=== PATIENT | female | born 2005 | race Hispanic/Latino ===

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

== ENCOUNTER 2024-06-10 11:30 | Inpatient (IN) | payer BC, OTHER ==
--- OUTSIDE RECORDS SUMMARY | 2024-06-10 11:33 | XMS REPORT | Continuity of Care Document ---
Author Name Unknown Address [address] [place] [address]. [address] [place] [id number] [place] [address] [employer] Address [address] [place] [address]. [address] [place] [address] Care Team Providers Care Senior Art Director Name Role Phone [email or web address] Attending Clinician Unavaila ble [email or web address] Admitting Clinician Unavaila ble Encounters Start Date/Time End Date/Time Encounter Type Admission Type Attending Clinicians Care Facility Care Department Encounter ID Source 2023-08-15 00:00:00 2023-08-15 00:00:00 Outpatient [email or web address] PRIV PRIV [id number] [facility] 2023-08-14 00:00:00 2023-08-14 00:00:00 Outpatient [email or web address] PRIV PRIV [id number] [facility]
[2024-06-10 12:46] LABS: Specific Gravity 1.012 (1.005-1.030)
[2024-06-10 12:47] LABS: Specific Gravity 1.012 (1.005-1.030); Sqamous Epithelial <5 /HPF (None Seen); Urine Bacteria None Seen /HPF (<20); Urine Bilirubin NEGATIVE (Negative); Urine Blood 1+ (Negative); Urine Clarity Turbid (Clear); Urine Color Light-Yellow (Yellow); Urine Culture Reflex Order NOT NEEDED; Urine Glucose NEGATIVE (Negative); Urine Ketones NEGATIVE (Negative); Urine Microscopic Reflex YN ORDER UMIC; Urine Mucus Slight /HPF (None Seen); Urine Nitrite NEGATIVE (Negative); Urine Protein 4+ (Over) (Negative); Urine RBC <5 /HPF (None Seen); Urine Urobilinogen Normal (Normal); Urine WBC <5 /HPF (<5)
[2024-06-10] MEDS ORDERED: ONDANSETRON 4 MG/2 ML VIAL ONE (13:04)
[2024-06-10] MEDS ORDERED: NA CHLORIDE 0.9% 1,000 ML ONE ×2 (13:05→14:09)
[2024-06-10] MEDS ORDERED: MORPHINE 4 MG/ML SYR ONE (13:05)
[2024-06-10 13:13] LABS: Absolute Lymphocytes (CBC) 0.6 K/uL (0.7-4.9); Absolute Neutrophil 18.1 K/uL (1.8-8.0); Basophils % 0.1 % (0-1.3); Eosinophils % 0.1 % (0-4.4); Hematocrit 39.4 % (36.0-45.0); Hemoglobin 12.9 g/dL (12.0-15.0); Lymphocytes % 3.1 % (15.3-44.8); MCH 28.1 pg (27.0-35.0); MCHC 32.7 g/dL (32.0-36.0); MCV 85.9 fL (80-100); MPV 9.3 fL (7.6-11.3); Monocytes % 5.2 % (3.3-12.3); Neutrophils % 91.5 % (41.7-73.7); Platelets 314 thou/uL (152-406); RBC Red Blood Cell Count 4.59 M/uL (3.86-4.86); Red Cell Distribution Width 14.1 % (12.1-15.2)
[2024-06-10 13:31] LABS: Albumin 2.5 g/dL (3.4-5.0); Albumin/Globulin Ratio 0.7 (1.1-1.8); Anion Gap 8.5 mEq/L (5.0-15.0); Globulin 3.7 g/dL (2.3-3.5); Protein, Total 6.2 g/dL (6.4-8.2)
[2024-06-10 13:33] LABS: Potassium 3.5 mEq/L (3.5-5.1)
--- NOTE | 2024-06-10 13:46 | RAD REPORT ---
EXAM DESCRIPTION: CT - Abdomen Pelvis W Contrast - 06/10/2024 1:25 pm CLINICAL HISTORY: Abdominal pain COMPARISON: none. TECHNIQUE: Computed axial tomography of the abdomen pelvis was obtained. 100 cc Isovue-300 was admin istered intravenously. Oral contrast was not requested which limits evaluation of bowel and appendix All CT scans are performed using dose optimization technique as appropriate and may include automated exposure control or mA/KV adjustment according to patient size. FINDINGS: The liver, spleen, pancreas, adrenal and kidneys appear unremarkable. There is no evidence of diverticulitis. The appendix is retrocecal and extends superiorly from the cecum. It contains a 19 mm stone. The appe ndix is enlarged with stranding in adjacent fat. No free air. No abscess IMPRESSION: Appendicitis
[2024-06-10 13:59] LABS: Blood Morphology Comment NOT SEEN (NOT SEEN); Platelet Estimate ADEQ; White Blood Cell Scan OK (OK)
[2024-06-10] MEDS ORDERED: PIPERACIL/TAZO 3.375 GM VIAL IV ONE (14:10)
--- NOTE | 2024-06-10 14:15 | EDPHYS ---
Physician Documentation [facility] Name: Clotilde Mathew Age: 18 yrs Sex: Female : 2005 Arrival Date: 06/10/2024 Time: 11:30 Bed 18 Private MD: ED Physician Susan Larios HPI: 06/10 14:09 This 18 yrs old Female presents to ER via Ambulatory with complaints of sp3 Abdominal Pain, Vomiting. 14:09 18-year-old female with no past medical history presents with right lower quadrant sp3 abdominal pain for 24 hours coupled with nausea. Possible bad food intake with "sushi". She denies any other symptoms including fever, travel history, chest pain, shortness of breath, diarrhea, syncope, rash, or any other signs or symptoms on ROS at this time.. 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 - Infectious Disease History:: Denies. - Social history:: Smoking status: Patient reports the use of cigarette tobacco products. ROS: 14:11 Constitutional: Negative for fever, chills, and weight loss, Eyes: Negative for injury, sp3 pain, redness, and discharge, ENT: Negative for injury, pain, and discharge, Neck: Negative for injury, pain, and swelling, Cardiovascular: Negative for chest pain, palpitations, and edema, Respiratory: Negative for shortness of breath, cough, wheezing, and pleuritic chest pain, Back: Negative for injury and pain, MS/Extremity: Negative for injury and deformity, Skin: Negative for injury, rash, and discoloration, Neuro: Negative for headache, weakness, numbness, tingling, and seizure, Psych: Negative for depression, anxiety, suicide ideation, homicidal ideation, and hallucinations, Allergy/Immunology: Negative for hives, rash, and allergies, Endocrine: Negative for neck swelling, polydipsia, polyuria, polyphagia, and marked weight changes, Hematologic/Lymphatic: Negative for swollen nodes, abnormal bleeding, and unusual bruising, 14:11 All other systems are negative, Exam: 14:11 Constitutional: This is a well developed, well nourished patient who is awake, alert, sp3 and in no acute distress. Head/Face: Normocephalic, atraumatic. Eyes: Pupils equal round and reactive to light, extra-ocular motions intact. Lids and lashes normal. Conjunctiva and sclera are non-icteric and not injected. Cornea within normal limits. Periorbital areas with no swelling, redness, or edema. ENT: Nares patent. No nasal discharge, no septal abnormalities noted. External auditory canals are clear. Oropharynx with no redness, swelling, or masses, exudates, or evidence of obstruction, uvula midline. Mucous membranes moist. Neck: Trachea midline, no thyromegaly or masses palpated, and no cervical lymphadenopathy. Supple, full range of motion without nuchal rigidity, or vertebral point tenderness. No Meningismus. Chest/axilla: Normal chest wall appearance and motion. Nontender with no deformity. No lesions are appreciated. Cardiovascular: Regular rate and rhythm with a normal S1 and S2. No gallops, murmurs, or rubs. Normal PMI, no JVD. No pulse deficits. Respiratory: Lungs have equal breath sounds bilaterally, clear to auscultation and percussion. No rales, rhonchi or wheezes noted. No increased work of breathing, no retractions or nasal flaring. Back: No spinal tenderness. No costovertebral tenderness. Full range of motion. Skin: Warm, dry with normal turgor. Normal color with no rashes, no lesions, and no evidence of cellulitis. MS/ Extremity: Pulses equal, no cyanosis. Neurovascular intact. Full, normal range of motion. Neuro: Awake and alert, GCS 15, oriented to person, place, time, and situation. Cranial nerves II-XII grossly intact. Motor strength 5/5 in all extremities. Sensory grossly intact. Cerebellar exam normal. Normal gait. Psych: Awake, alert, with orientation to person, place and time. Behavior, mood, and affect are within normal limits. 14:11 Abdomen/GI: Right lower quadrant abdominal pain to palpation with localized peritonitis, Vital Signs: 11:56 BP 167 / 90; Pulse 112; Resp 18; Temp 98.4; Pulse Ox 100% ; Weight 86.18 kg; Height 5 iw ft. 0 in. ; Pain 9/10; 14:39 BP 155 / 75; Pulse 107; Resp 15; Pulse Ox 97% ; bp 11:56 Body Mass Index 37.11 (86.18 kg, 152.4 cm) iw 11:56 Pain Scale: Adult iw MDM: 12:00 Patient medically screened. sp3 14:12 Data reviewed: vital signs, nurses notes, lab test result(s), radiologic studies. ED sp3 course: 18-year-old female with right lower quadrant abdominal pain. Differential diagnosis includes appendicitis, foodborne illness, AQUATICS LIFEGUARD pathology, UTI/pyelonephritis pathology, other colitis, among others. Workup will include CT scan of the abdomen pelvis, laboratory values, UA, test, IV fluid bolus given heart rate, lactate, morphine and Zofran IV. CT scan demonstrates positive appendicitis without abscess or rupture coupled with localized fat stranding. WBC 19,000. Patient meets sepsis criteria and second normal saline bolus also given. Zosyn IV given and cultures are pending. I discussed the case with Dr. Rodriguez and hospitalist for admission and surgical intervention. Patient remains n.p.o.. 06/10 12:00 Order name: CBC with Diff; Complete Time: 14:05 sp3 06/10 12:00 Order name: CMP; Complete Time: 13:50 sp3 06/10 12:00 Order name: Lipase; Complete Time: 13:50 sp3 06/10 12:00 Order name: Test, Urine; Complete Time: 12:54 sp3 06/10 12:00 Order name: Urinalysis w/ reflexes; Complete Time: 12:54 sp3 06/10 12:00 Order name: Lactate w/ 2H reflex if indic.; Complete Time: 13:50 sp3 06/10 13:16 Order name: CBC Smear Scan; Complete Time: 14:05 EDMS 06/10 12:00 Order name: CT Abd/Pelvis - IV Contrast Only; Complete Time: 13:50 sp3 06/10 12:00 Order name: IV Saline Lock; Complete Time: 13:08 sp3 06/10 12:00 Order name: Labs collected and sent; Complete Time: 13:08 sp3 Administered Medications: 13:10 Drug: NS 0.9% IV 1000 ml IV at 1 bolus Per protocol; 1000 mL bolus Route: IV; Rate: 1 jl7 bolus; Site: right antecubital; 14:40 Follow up: IV Status: Completed infusion; IV Intake: 1000ml bp 13:10 Drug: Ondansetron IVP 4 mg IVP once; over 2 minutes Route: IVP; Site: right antecubital;jl7 14:04 Follow up: Response: No adverse reaction bp 13:12 Drug: morphine IVP or IV 4 mg IVP once over 4 mins Route: IVP; Infused Over: 4 mins; jl7 Site: right antecubital; 14:15 Follow up: Response: No adverse reaction bp 14:15 Drug: NS 0.9% IV 1000 ml IV at 1 bolus Per protocol; 1000 mL bolus Route: IV; Rate: 1 bp bolus; Site: right antecubital; 14:40 Follow up: IV Status: Completed infusion; IV Intake: 1000ml bp 14:15 Drug: Piperacillin-Tazobactam IVPB 3.375 grams IVPB once over 60 mins; (mix in NS 100 bp mL) Route: IVPB; Infused Over: 60 mins; Site: right antecubital; 14:40 Follow up: IV Status: Completed infusion; IV Intake: 100ml bp Disposition Summary: 06/10/24 14:14 Hospitalization Ordered Notes: Hospitalization Status: Inpatient Admission sp3 Provider: Elia Graf spLynne Location: Telemetry/[facility] (Inpatient) sp3 Condition: Stable sp3 Problem: new sp3 Symptoms: have worsened sp3 Bed/Room Type: Standard sp3 Room Assignment: sp3 Diagnosis - Acute appendicitis with localized peritonitis sp3 Forms: - Medication Reconciliation Form sp3 - SBAR form sp3 - Leadership Thank You Letter sp3 Signatures: Dispatcher [employer] Kristine Jeffers RN RN iw Leal, Jahala, RN RN jl7 Peltier, Brian, RN RN bp Patel, Setul, MD MD sp3
--- NOTE | 2024-06-10 14:15 | ER ---
Nurse's Notes [facility] Name: Clotilde Mathew Age: 18 yrs Sex: Female : 2005 Arrival Date: 06/10/2024 Time: 11:30 Bed 18 Private MD: Diagnosis: Acute appendicitis with localized peritonitis Presentation: 06/10 11:56 Chief complaint: Patient states: started vomiting last night and had stomach ache , is iw in excruciating pain , pt reports pain is 9/10 localized to right abd. Coronavirus screen: At this time, the client does not indicate any symptoms associated with coronavirus-19. Ebola Screen: No symptoms or risks identified at this time. Initial Sepsis Screen: Does the patient meet any 2 criteria? No. Patient's initial sepsis screen is negative. Does the patient have a suspected source of infection? No. Patient's initial sepsis screen is negative. Risk Assessment: Do you want to hurt yourself or someone else? Patient reports no desire to harm self or others. Onset of symptoms was June 09, 2024. 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 - Infectious Disease History:: Denies. - Social history:: Smoking status: Patient reports the use of cigarette tobacco products. Screenin:17 [facility] ED Fall Risk Assessment (Adult) History of falling in the last 3 months, jl7 including since admission No falls in past 3 months (0 pts) Confusion or Disorientation No (0 pts) Intoxicated or Sedated No (0 pts) Impaired Gait No (0 pts) Mobility Assist Device Used No (0 pt) Altered Elimination No (0 pt) Score/Fall Risk Level 0 - 2 = Low Risk Oriented to surroundings, Maintained a safe environment. Abuse screen: Denies threats or abuse. Denies injuries from another. Nutritional screening: No deficits noted. Tuberculosis screening: No symptoms or risk factors identified. Assessment: 13:17 General: Appears in no apparent distress. uncomfortable, Behavior is calm, cooperative, jl7 appropriate for age. Pain: Complains of pain in right lower quadrant Pain currently is 10 out of 10 on a pain scale. Neuro: Level of Consciousness is awake, alert, obeys commands, Oriented to person, place, time, situation. Cardiovascular: Patient's skin is warm and dry. Respiratory: Airway is patent Respiratory effort is even, unlabored, Respiratory pattern is regular, symmetrical. GI: Abdomen is non-distended, Reports lower abdominal pain. Derm: Skin is pink, warm \T\ dry. 13:23 Reassessment: Pt medicated and placed back in lobby, notified of wait time. jl7 14:00 Reassessment: Dr. Larios at bedside discussing results and POC. jl7 14:06 Reassessment: Patient and/or family updated on plan of care and expected duration. Pain ap3 level reassessed. General: Appears in no apparent distress. Behavior is calm, cooperative, appropriate for age. Pain: Complains of pain in right lower quadrant. Neuro: Level of Consciousness is awake, alert, obeys commands, Oriented to person, place, time, situation, Appropriate for age. Cardiovascular: Patient's skin is warm and dry. Respiratory: Airway is patent Respiratory effort is even, unlabored, Respiratory pattern is regular, symmetrical. 14:15 Reassessment: +APPY PER MD, SURGERY C/S IN PROCESS. bp 14:38 Reassessment: OR AT B/S FOR ADMIT. bp 14:39 GI: Bowel sounds present X 4 quads. Abd is soft X 4 quads Abdomen is tender to bp palpation in right lower quadrant. Vital Signs: 11:56 BP 167 / 90; Pulse 112; Resp 18; Temp 98.4; Pulse Ox 100% ; Weight 86.18 kg; Height 5 iw ft. 0 in. ; Pain 9/10; 14:39 BP 155 / 75; Pulse 107; Resp 15; Pulse Ox 97% ; bp 11:56 Body Mass Index 37.11 (86.18 kg, 152.4 cm) iw 11:56 Pain Scale: Adult iw ED Course: 11:35 Patient arrived in ED. im 11:40 Susan Larios MD is Attending Physician. sp3 11:57 Triage completed. iw 12:49 Missed attempt(s): 22 gauge in right antecubital area. Bleeding controlled, band aid zm applied, catheter tip intact. 13:00 Missed attempt(s): 22 gauge in right antecubital area. Bleeding controlled, band aid jl7 applied, catheter tip intact. 13:08 Initial lab(s) drawn, by me, sent to lab. Inserted saline lock: 20 gauge in right jl7 antecubital area, using aseptic technique. Blood collected. Flushed with 10 mL NS Accessed peripheral vein via ultrasound, utilizing dynamic ultrasound technique Inserted by Linda Ibarra RN. 13:17 Patient has correct armband on for positive identification. Provided Education on: jl7 tests. 13:26 CT Abd/Pelvis - IV Contrast Only In Process Unspecified. EDMS 14:04 Nicholas Garvey, ABDIRIZAK is Primary Nurse. bp 14:06 Arm band placed on right wrist. ap3 14:14 Elia Graf MD is Hospitalizing Provider. sp3 14:38 No provider procedures requiring assistance completed. Patient admitted, IV remains in bp place. Administered Medications: 13:10 Drug: NS 0.9% IV 1000 ml IV at 1 bolus Per protocol; 1000 mL bolus Route: IV; Rate: 1 jl7 bolus; Site: right antecubital; 14:40 Follow up: IV Status: Completed infusion; IV Intake: 1000ml bp 13:10 Drug: Ondansetron IVP 4 mg IVP once; over 2 minutes Route: IVP; Site: right antecubital;jl7 14:04 Follow up: Response: No adverse reaction bp 13:12 Drug: morphine IVP or IV 4 mg IVP once over 4 mins Route: IVP; Infused Over: 4 mins; jl7 Site: right antecubital; 14:15 Follow up: Response: No adverse reaction bp 14:15 Drug: NS 0.9% IV 1000 ml IV at 1 bolus Per protocol; 1000 mL bolus Route: IV; Rate: 1 bp bolus; Site: right antecubital; 14:40 Follow up: IV Status: Completed infusion; IV Intake: 1000ml bp 14:15 Drug: Piperacillin-Tazobactam IVPB 3.375 grams IVPB once over 60 mins; (mix in NS 100 bp mL) Route: IVPB; Infused Over: 60 mins; Site: right antecubital; 14:40 Follow up: IV Status: Completed infusion; IV Intake: 100ml bp Medication: 13:17 VIS not applicable for this client. jl7 Intake: 14:40 IV: 1000ml; Total: 1000ml. bp 14:40 IV: 100ml; Total: 1100ml. bp 14:40 IV: 1000ml; Total: 2100ml. bp Outcome: 14:14 Decision to Hospitalize by Provider. sp3 14:38 Admitted to OR accompanied by nurse, via wheelchair, room 212, with chart, Report bp called to ETELVINA REVELES 14:38 Condition: stable 14:38 Instructed on the need for admit, 14:42 Patient left the ED. bp Signatures: Dispatcher [employer] EDMS Kristine Bermudez, RN RN iw Sruthi Hull RN RN jl7 Nicholas Garvey RN RN Brittney Walls RN RN [email or web address] Susan Larios MD MD sp3 Radha Ibarra Itzel im
--- NOTE | 2024-06-10 14:38 | P.HP ---
Certification for Inpatient Patient admitted to: Inpatient With expected LOS: >2 Midnights Patient will require the following post-hospital care: None Practitioner: I am a practitioner with admitting privileges, knowledge of patient current condition, hospital course, and medical plan of care. Services: Services provided to patient in accordance with Admission requirements found in Title 42 Section 412.3 of the Code of Federal Regulations <Chanda Lyons - Last Filed: 06/10/24 16:57> Patient History Date of Service: 06/10/24 Reason for admission: abdominal pain, vomiting History of Present Illness: Ms. Mathew 18-year-old female with a past medical history of insomnia who began vomiting last p.m. with complaint of right lower quadrant abdominal pain. She presented to the emergency department with severe pain in the right lower quadrant continued nausea and vomiting. She was noted to have a very high white count at 19.7 with neutrophils of 91.5%, CMP within normal limits, lactate 2.2, urine test negative. CT abdomen pelvis was performed and read as acute appendicitis. Dr. Rodriguez was consulted and the patient was taken to the operating room after receiving 2 L of normal saline, Zosyn 3.375gm, morphine 4 mg and Zofran 4 mg IV. She will be admitted to the hospital for further treatment. Home medications list reviewed: Yes - Past Medical/Surgical History Has patient received pneumonia vaccine in the past: No Diabetic: No -: Tonsillectomy -: Adenoidectomy Psychosocial/ Personal History: Vapes but does not drink alcohol. Mild hearing loss - Social History Smoking Status: Current every day smoker Alcohol use: No CD- Drugs: No Caffeine use: Yes Place of Residence: Home <Chanda Lyons - Last Filed: 06/10/24 16:57> Date of Service: 06/10/24 <Elia Graf - Last Filed: 06/10/24 18:15> Allergies No Known Drug Allergies Allergy (Unverified 11/12/14 22:09) Unknown Home Medications: NK [No Home Meds] 02/21/13 Review of Systems 10-point ROS is otherwise unremarkable Gastrointestinal: Nausea, Vomiting, Abdominal Pain, As per HPI <Chanda Lyons - Last Filed: 06/10/24 16:57> Physical Examination - Physical Exam General: Alert, In no apparent distress, Oriented x3 HEENT: Atraumatic, Normocephalic Neck: Supple Respiratory: Normal air movement Cardiovascular: Normal pulses, Regular rate/rhythm Capillary refill: <2 Seconds Gastrointestinal: Normal bowel sounds, Distended, Tenderness (Right lower quadrant) Musculoskeletal: No clubbing Integumentary: No rashes Neurological: Normal speech, Normal tone, Normal affect Lymphatics: No axilla or inguinal lymphadenopathy External genitalia: Deferred Rectal: Deferred - Studies Laboratory Data (last 24 hrs) 06/10/24 06/10/24 13:02 13:02 WBC 19.70 H Hgb 12.9 Hct 39.4 Plt Count 314 Sodium 136 Potassium 3.5 BUN 8 Creatinine 0.69 Glucose 130 H Total Bilirubin 1.0 AST 16 ALT 18 Alkaline Phosphatase 80 Lipase 20 <Chanda Lyons - Last Filed: 06/10/24 16:57> - Studies Laboratory Data (last 24 hrs) 06/10/24 06/10/24 13:02 13:02 WBC 19.70 H Hgb 12.9 Hct 39.4 Plt Count 314 Sodium 136 Potassium 3.5 BUN 8 Creatinine 0.69 Glucose 130 H Total Bilirubin 1.0 AST 16 ALT 18 Alkaline Phosphatase 80 Lipase 20 <HomarChidigeorge C - Last Filed: 06/10/24 18:15> Assessment and Plan - Plan Acute appendicitis Sepsis Given 2L NS bolus in ED To OR Consult Dr. Rodriguez (done from ED) Zosyn 3.375gm IVPB Q8h pain control Monitor labs, trend CBC, Lactate TEDS - Advance Directives Does patient have a Living Will: No Does patient have a Durable POA for Healthcare: No Time Spent Managing Pts Care (In Minutes): 50 <Chanda Lyons - Last Filed: 06/10/24 16:57> - Plan Pt seen and examined. I agree with the note by the STAPLE FIBER WASHER. Pt is a 18yo female with past medical history of insomnia who presents with RLQ abd pain . The abdominal pain is associated with nausea and vomiting. The abdominal painis constant, sharp and non-radiating. Lab studies show wbc 19.7, Hgb12.9, K 3.5, Cr 0.69, lactate 2.2, urine test negative. CT abdomen pelvis showed acute appendicitis. Dr. Michael took her to the OR for surgery. A/P: Severe sepsis 2/2 Acute appendicitis: Will continue zosyn and f/u blood cx. Gen surgery took her to the OR today. Continue IVF and prn pain med. Lactic acidosis: Lactate is 2.2. Will continue IVF and trend lactate. Insomnia: continue melatonin Obesity: Pt was advised to lose weight. DVT ppx: SCD. <Elia Garf - Last Filed: 06/10/24 18:15>
[2024-06-10] MEDS: Ringers Lactate 1,000 ML IV ONE (15:03)
[2024-06-10] MEDS ORDERED: LIDOCAINE 1% MPF 5 ML VIAL ONE (15:11)
[2024-06-10] MEDS ORDERED: MIDAZOLAM HCL 2 MG/2 ML INJ ONE (15:12)
[2024-06-10] MEDS ORDERED: ROCURONIUM 50 MG/5 ML VIAL IV ONE (15:12)
[2024-06-10] MEDS ORDERED: propofoL 200 MG/20 ML VIAL IV ONE (15:12)
[2024-06-10] MEDS ORDERED: FENTANYL CITR 100 MCG/2 ML ONE (15:12)
[2024-06-10] MEDS ORDERED: MORPHINE 4 MG/ML SYR IV PRN (15:18)
[2024-06-10] MEDS ORDERED: ONDANSETRON 4 MG/2 ML VIAL IV PRN (15:18)
--- NOTE | 2024-06-10 15:32 | P.CNS ---
Date of Consult: 06/10/24 Reason for consult: Abdominal pain History of present illness: Patient is a 18-year-old female who presents to the emergency room with 15-hour history of periumbilical abdominal pain localizing to the right lower quadrant associated with nausea but no vomiting. Patient denies any fever or chills. Patient denies any sore throat, runny nose, cough, headaches, dizziness or chest pain. Patient denies any diarrhea, constipation or bright red blood per rectum. Patient denies any dysuria or hematuria. Review of systems: Otherwise unremarkable Past medical history: Slight hearing loss. Past surgical history: Tonsillectomy and adenoidectomy Allergies: None Social history: Patient vapes does not drink alcohol Family history: Noncontributory Vital signs: Stable, afebrile Awake, alert and oriented x 3 Physical exam: Head and neck exam: No masses Chest: Clear Heart: S1-S2 Abdomen: Soft, nondistended, positive bowel sound, positive Rovsing's sign, positive right lower quadrant tenderness with rebound but no rigidity or guarding. Extremity: Neurovascular intact Neuro: Nonfocal Diagnostic data: Leukocytosis (19,000), elevated lactic acid, CT of the abdomen pelvis consistent with acute retrocecal appendicitis Assessment: Acute appendicitis Plan/recommendation: Admit, n.p.o., IV fluids, IV antibiotics and to the OR for laparoscopic appendectomy possible open. Patient understands risk, benefits and alternatives and agrees to procedure. CC:
[2024-06-10] MEDS: BUPIVACAINE 0.25% PF 10 ML VIAL ONE (16:00)
[2024-06-10] MEDS ORDERED: PROMETHAZINE INJ 25 MG/ML AMP IV PRN (16:09)
[2024-06-10] MEDS ORDERED: SIMETHICONE 125 MG TAB PO PRN (16:09)
[2024-06-10] MEDS ORDERED: NEOSTIGMINE 1 MG/ML -10 ML VIAL ONE (16:21)
[2024-06-10] MEDS ORDERED: GLYCOPYRROLATE 0.2 MG/ML SYR ONE ×3 (16:21→16:22)
--- NOTE | 2024-06-10 16:45 | P.OP ---
Date of Service: 06/10/24 Preop diagnosis: Acute retrocecal appendicitis Postop diagnosis: Same Procedure performed: Laparoscopic appendectomy Surgeon: Cain Rodriguez MD Mortgage Closing Clerk: None Estimated blood loss: Minimal Specimen: Appendix Findings: Acute suppurative retrocecal appendicitis Anesthesia: General Complications: None Drains: None Fluids and blood products: Nonapplicable Disposition: Recovery room Operative note: Patient brought to the OR and placed in supine position. General anesthesia began. Patient prepped and draped in the usual sterile fashion. Marcaine 0.5% infiltrated locally. 2 cm supraumbilical midline incision made. Subcutaneous tissue divided and bleeding controlled with cautery. Fascia identified and divided. #1 Vicryl stay suture placed. Peritoneal cavity entered with sharp and blunt dissection. 12 mm trocar placed into the peritoneal cavity under direct vision. Pneumoperitoneum established. Two 5 mm trocar placed under direct vision. 1 trocar placed in the suprapubic region and the other 1 in the left lower quadrant. Laparoscopy revealed acute retrocecal suppurative appendicitis. Endo IVAN stapling device used to divide the base of the appendix on the cecum. The mesoappendix was taken down with sharp and blunt dissection utilizing LigaSure as needed. Entire appendix was retrieved via Endo Catch bag through the umbilicus. Right lower quadrant and pelvis were thoroughly irrigated. Effluent was clear there was no evidence of bleeding or bowel injury appreciated. Subsequently all trocars removed under direct vision. Stay sutures tied to each other to reapproximate the fascial defect. Subcutaneous was irrigated and bleeding controlled cautery. 3-0 chromic used to approximate subcutaneous tissue and close skin. Sterile dressing applied. Patient awakened and taken to recovery room in good general condition. CC:
[2024-06-10] MEDS: FENTANYL CITR 100 MCG/2 ML ONE (16:50)
[2024-06-10] MEDS: KETOROLAC 30 MG/ML INJ ONE (17:00)
[2024-06-10] MEDS ORDERED: HYDROMORPHONE HCL 1 MG/ML INJ IV PRN (17:00)
[2024-06-10 17:41] VITALS: BMI 5342.8
[2024-06-10] MEDS: NA CHLORIDE 0.9% 1,000 ML IV SCH (18:09)
[2024-06-10] MEDS: PIPER TAZO 3.375 GM in NA CHLORIDE 0.9% 100 ML IV SCH (20:16)
[2024-06-10] MEDS: HYDROCODONE/APAP 7.5/325 MG TAB PO PRN (20:55)
[2024-06-11 05:49] LABS: Absolute Lymphocytes (CBC) 1.5 K/uL (0.7-4.9); Absolute Monocytes 0.8 K/uL (0.1-1.3); Absolute Neutrophil 6.7 K/uL (1.8-8.0); Basophils % 0.3 % (0-1.3); Eosinophils % 0.6 % (0-4.4); Hematocrit 32.3 % (36.0-45.0); Lymphocytes % 16.6 % (15.3-44.8); MCH 29.1 pg (27.0-35.0); MCV 85.5 fL (80-100); MPV 9.3 fL (7.6-11.3); Monocytes % 8.7 % (3.3-12.3); Neutrophils % 73.8 % (41.7-73.7); Platelets 247 thou/uL (152-406); RBC Red Blood Cell Count 3.77 M/uL (3.86-4.86); Red Cell Distribution Width 14.2 % (12.1-15.2)
[2024-06-11 06:04] LABS: Magnesium 1.7 mg/dL (1.6-2.4); Phosphorus 3.4 mg/dL (2.5-4.9)
[2024-06-11 06:33] VITALS: TEMP 98.2
[2024-06-11 08:40] VITALS: O2SAT 99
[2024-06-11 09:14] VITALS: BP 131/55
[2024-06-11] MEDS: MAGNESIUM SULFATE 1 gm IVPB 1 GM/100 ML BAG IV SCH (09:18)
[2024-06-11] MEDS: POTASSIUM CL SA 10 MEQ TAB PO SCH (09:19)
--- NOTE | 2024-06-11 10:26 | P.PN ---
Date of Service: 06/11/24 Subjective: Patient is awake and alert. Pain is controlled. Patient tolerating diet. Objective: Vital signs stable, afebrilewhite count is normal Abdomen: Soft, nondistended, nontender and positive bowel sounds. Dressing clean dry and intact. Assessment: Status post laparoscopic appendectomy Plan: Patient cleared for discharge on oral antibiotics. Discharge instructions given. Patient to follow-up with me in 1 week in my office. Plan of care discussed with patient, family and Dr. Terry. CC:
--- NOTE | 2024-06-11 12:00 | P.DS ---
Admission Date: 06/10/24 Discharge Date: 06/11/24 Reason for Admission: abdominal pain, vomiting Consultations: Dr. Rodriguez Procedures: Laporoscopic appendectomy Brief History of Present Illness: Ms. Mathew 18-year-old female with a past medical history of insomnia who began vomiting last p.m. with complaint of right lower quadrant abdominal pain. She presented to the emergency department with severe pain in the right lower quadrant continued nausea and vomiting. She was noted to have a very high white count at 19.7 with neutrophils of 91.5%, CMP within normal limits, lactate 2.2, urine test negative. CT abdomen pelvis was performed and read as acute appendicitis. Dr. Rodriguez was consulted and the patient was taken to the operating room after receiving 2 L of normal saline, Zosyn 3.375gm, morphine 4 mg and Zofran 4 mg IV. She will be admitted to the hospital for further treatment. Hospital Course: Ms. Mathew did very well over the course of her admission. Her white count h as normalized. Electrolytes have been replaced. She underwent a laparoscopic appendectomy, bowel sounds now sluggish but present, tolerating p.o., surgical dressings clean, dry, and intact. Dr. Rodriguez has reevaluated her and she will be discharged with p.o. antibiotics and planned follow-up with Dr. Rodriguez. <Chanda Lyons - Last Filed: 06/11/24 11:55> Admission Date: 06/10/24 Discharge Date: 06/11/24 Hospital Course: Pt seen and examined. I agree with the note by the EMERGENCY TECHNICIAN. Pt is tolerating jello. W ill continue clear liquid diet for some day. Gen surgeon cleared her for discharge. Will continue Augmentin for 10 days. <Elia Graf - Last Filed: 06/11/24 12:23> Disposition: ROUTINE DISCHARGE Discharge Condition: GOOD Vital Signs/Physical Exam: Temp Pulse Resp BP Pulse Ox 98.2 F 91 H 16 131/55 L 95 06/11/24 08:00 06/11/24 08:00 06/11/24 09:10 06/11/24 08:00 06/11/24 08:00 General: Alert, In no apparent distress, Oriented x3 HEENT: Atraumatic, Normocephalic Neck: Supple Respiratory: Normal air movement Cardiovascular: Normal pulses, Regular rate/rhythm Capillary refill: <2 Seconds Gastrointestinal: Hypoactive, Tenderness (Minimal) Musculoskeletal: No clubbing Integumentary: No rashes Neurological: Normal speech, Normal tone, Normal affect Lymphatics: No axilla or inguinal lymphadenopathy External genitalia: Deferred Rectal: Deferred Laboratory Data at Discharge: WBC 9.00 thou/uL (4.3-10.9) 06/11/24 04:51 Hgb 11.0 g/dL (12.0-15.0) L D 06/11/24 04:51 Hct 32.3 % (36.0-45.0) L 06/11/24 04:51 Plt Count 247 thou/uL (152-406) 06/11/24 04:51 Sodium 139 mEq/L (136-145) 06/11/24 04:51 Potassium 3.0 mEq/L (3.5-5.1) L D 06/11/24 04:51 BUN 7 mg/dL (7-18) 06/11/24 04:51 Creatinine 0.45 mg/dL (0.55-1.02) L 06/11/24 04:51 Glucose 103 mg/dL (74-106) 06/11/24 04:51 Phosphorus 3.4 mg/dL (2.5-4.9) 06/11/24 04:51 Magnesium 1.7 mg/dL (1.6-2.4) 06/11/24 04:51 Total Bilirubin 1.0 mg/dL (0.2-1.0) 06/10/24 13:02 AST 16 U/L (15-37) 06/10/24 13:02 ALT 18 U/L (13-56) 06/10/24 13:02 Alkaline Phosphatase 80 U/L (45-117) 06/10/24 13:02 Lipase 20 U/L (13-75) 06/10/24 13:02 <Lyons,Chanda Enrique - Last Filed: 06/11/24 11:55> Vital Signs/Physical Exam: Temp Pulse Resp BP Pulse Ox 98.2 F 91 H 16 131/55 L 95 06/11/24 08:00 06/11/24 08:00 06/11/24 09:10 06/11/24 08:00 06/11/24 08:00 Laboratory Data at Discharge: WBC 9.00 thou/uL (4.3-10.9) 06/11/24 04:51 Hgb 11.0 g/dL (12.0-15.0) L D 06/11/24 04:51 Hct 32.3 % (36.0-45.0) L 06/11/24 04:51 Plt Count 247 thou/uL (152-406) 06/11/24 04:51 Sodium 139 mEq/L (136-145) 06/11/24 04:51 Potassium 3.0 mEq/L (3.5-5.1) L D 06/11/24 04:51 BUN 7 mg/dL (7-18) 06/11/24 04:51 Creatinine 0.45 mg/dL (0.55-1.02) L 06/11/24 04:51 Glucose 103 mg/dL (74-106) 06/11/24 04:51 Phosphorus 3.4 mg/dL (2.5-4.9) 06/11/24 04:51 Magnesium 1.7 mg/dL (1.6-2.4) 06/11/24 04:51 Total Bilirubin 1.0 mg/dL (0.2-1.0) 06/10/24 13:02 AST 16 U/L (15-37) 06/10/24 13:02 ALT 18 U/L (13-56) 06/10/24 13:02 Alkaline Phosphatase 80 U/L (45-117) 06/10/24 13:02 Lipase 20 U/L (13-75) 06/10/24 13:02 <Elia Graf - Last Filed: 06/11/24 12:23> Diet: Regular Activity: No lifting more than 10 lbs <Lyons,Chanda Enrique - Last Filed: 06/11/24 11:55> <Elia Graf - Last Filed: 06/11/24 12:23> Home Medications: Amox/Clavulanate [Augmentin 875-125 Tab] 875 mg PO BID #14 tab 06/11/24 Hydrocodone 7.5/APAP 325 [[place] 7.5/325 mg*] 1 tab PO Q4H PRN 3 Days #18 tab 06/11/24 New Medications: Amox/Clavulanate [Augmentin 875-125 Tab] 875 mg PO BID #14 tab Hydrocodone 7.5/APAP 325 [[place] 7.5/325 mg*] 1 tab PO Q4H PRN 3 Days #18 tab PRN Reason: Pain Scale 5-7 (Moderate) Physician Discharge Instructions: Ms. Mathew did very well over the course of her admission. Her white count has normalized. Electrolytes have been replaced. She underwent a laparoscopic appendectomy, bowel sounds now sluggish but present, tolerating p.o., surgical dressings clean, dry, and intact. Dr. Rodriguez has reevaluated her and she will be discharged with p.o. antibiotics and planned follow-up with Dr. Rodrigeuz. Remove outer dressing in a.m. and shower Keep Steri-Strips on at all times Incentive spirometry as instructed Resume home meds and diet No heavy lifting or strenuous exercise Follow-up my office 1 week, call for appointment Antibiotics and pain medicine per the hospitalist team Followup: Heath Garcia MD [Primary Care Provider] - Cain Rodriguez MD [ACTIVE - CAN ADMIT] - 1 Week
== END 2024-06-11 13:12 | disposition home or self-care (01) | DRG 854 ==
LOC: ER 11:30 → ERHOLD 15:18 → 2ND 17:14
PROVIDERS: ADMIT Hospitalist; ATTEND Hospitalist
PROC: 0DTJ4ZZ Resection of Appendix, Percutaneous Endoscopic Approach (ICD-10-PCS; principal; 2024-06-10 14:45)
DX: A41.9 Sepsis, unspecified organism (principal); E87.20 Acidosis, unspecified; K35.30 Acute appendicitis with localized peritonitis, without perforation or gangrene; R65.20 Severe sepsis without septic shock; G47.00 Insomnia, unspecified; E66.9 Obesity, unspecified; F17.210 Nicotine dependence, cigarettes, uncomplicated; Z79.899 Other long term (current) drug therapy
CPT/HCPCS: 36415; 74177; 80048; 80053; 81001; 81025; 83605; 83690; 83735; 84100; 85025; 88304; 94010; 96361; 96365; 96375; 99285; J2001; J2250; J2405; J2543; J2704; J2710; J3010; J3475; J7030; J7120; Q9967